=== PATIENT | female | born 1995 | race Caucasian/White ===

== ENCOUNTER 2016-07-13 20:50 | Emergency (ER) ==
[2016-07-13 20:51] VITALS: BMI 20.5
[2016-07-13 20:56] VITALS: BP 109/78; TEMP 101.5
--- NOTE | 2016-07-13 21:23 | ED.PDOC ---
General ED Provider: Dr. DENAE WOODSON Chief Complaint: Fever Stated Complaint: Been coughing, congestion, hurting to breath, Time Seen by Physician: 21:21 Mode of Arrival: Walk-In Information Source: Patient, Family Primary Care Provider: IRIS ANTONIO Nursing and Triage Documentation Reviewed and Agree: Yes Respiratory Complaint Exam - Respiratory Complaint/Exam Symptoms Are: Still present Timing: Constant Initial Severity: Mild Current Severity: Mild Location: Nose, Chest Character: Reports: Non-productive cough Aggravating: Reports: Allergens, URI Alleviating: Reports: None Associated Signs and Symptoms: Reports: Wheezing, Nasal congestion, Hoarseness. Denies: Rapid breathing, Dyspnea, Fever, Chills, Chest pain, Pleuritic chest pain, Hemoptysis, Dizziness, Calf pain, Calf swelling, Edema, URI, Sinus discomfort, Vomiting, Sore throat, Weight loss, Decreased oral intake, Increased thirst, Increased appetite, Increased urination History of Healthcare-Acquired Pneumonia: No Related Surgical History: Reports: None Pulmonary Embolism Risk Factors: None Cardiac Risk Factors: Reports: None Pseudomonas Risk Factors: Reports: None Tuberculosis Risk Factors: Reports: None Status Asthmaticus Risk Factors: Reports: None Home Oxygen Use: No Recent Stress Test: No Recent Echo/LV Function: No Current Antibiotic Use: No Current Asthma Medication Use: No Respiratory Distress: None Inadequate Respiratory Effort: No Dysphagia Present: No Stridor Present: No JVD Present: No Accessory Muscle Use: No Retractions: Not Present Diminished Breath Sounds: No Sinus Tenderness: None Differential Diagnoses: Pneumonia, Influenza Review of Systems - Review Of Systems Constitutional: Reports: Fever, Malaise Eyes: Reports: No symptoms Ears, Nose, Mouth, Throat: Reports: No symptoms Respiratory: Reports: Cough Cardiac: Reports: No symptoms GI: Reports: No symptoms : Reports: No symptoms Musculoskeletal: Reports: No symptoms Skin: Reports: No symptoms Neurological: Reports: No symptoms Endocrine: Reports: No symptoms Hematologic/Lymphatic: Reports: No symptoms All Other Systems: Reviewed and Negative Past Medical History - Past Medical History Previously Healthy: Yes Endocrine: Reports: None Cardiovascular: Reports: None Respiratory: Reports: None Hematological: Reports: None Gastrointestinal: Reports: None Genitourinary: Reports: None Neuro/Psych: Reports: None Musculoskeletal: Reports: None Cancer: Reports: None Last Menstrual Period: april - Surgical History General Surgical History: Reports: None - Family History Family History: Reports: None - Social History Smoking Status: Never smoker Hx Substance Use: No Alcohol Screening: Occasionally - Immunizations Tetanus Shot up to Date: Yes Physical Exam - Physical Exam Appearance: Well-appearing, No pain distress, Well-nourished Eyes: PIA, EOMI, Conjunctiva clear ENT: Ears normal, Nose normal, Oropharynx normal Respiratory: Airway patent, Breath sounds clear, Breath sounds equal, Respirations nonlabored Cardiovascular: RRR, Pulses normal, No rub, No murmur GI/: Soft, Nontender, No masses, Bowel sounds normal, No Organomegaly Musculoskeletal: Normal strength, ROM intact, No edema, No calf tenderness Skin: Warm, Dry, Normal color Neurological: Sensation intact, Motor intact, Reflexes intact, Cranial nerves intact, Alert, Oriented Psychiatric: Affect appropriate, Mood appropriate Interpretation - Radiology Interpretation Radiology Interpretation By: ED Physician Radiology Results: Negative Exam Interpreted: CXR Critical Care Note - Critical Care Note Total Time (mins): 0 Course - Course Orders, Labs, Meds: Lab Review 07/13/16 21:21 Urine Color Yellow Urine Clarity Clear Urine pH 5.5 Ur Specific [place] 1.025 Urine Protein Negative Urine Glucose (UA) Negative Urine Ketones 1+ Urine Blood Negative Urine Nitrite Negative Urine Bilirubin Negative Urine Urobilinogen 0.2 Ur Leukocyte Esterase 1+ Urine Microscopic WBC 2-5 Ur Squamous Epith Cells 10-20 Urine Bacteria 1+ Urine Mucus Trace Urine Test Negative Influenza A (Rapid) Negative Influenza B (Rapid) Negative Orders Category Date Time Status MOLECULAR GROUP A STREP Stat LAB 07/13/16 21:21 Results RAPID FLU A/B Stat LAB 07/13/16 21:21 Completed STREP SCREEN Stat LAB 07/13/16 21:21 Results URINALYSIS C & S IF INDICATED Stat LAB 07/13/16 21:21 Completed URINE CULTURE Stat LAB 07/13/16 21:33 Received URINE Stat LAB 07/13/16 21:21 Completed Dexamethasone 4 mg/ml Inj [Decadron 4 mg/ml Sdv] MEDS 07/13/16 21:43 Stat 4 mg IM ONCE STA CXR [CHEST, 1V AP ONLY] Stat RADS 07/13/16 21:20 Taken Medications Discontinued Medications Generic Name Dose Route Start Last Admin Trade Name Freq PRN Reason Stop Dose Admin Dexamethasone Sodium Phosphate 4 mg 07/13/16 21:43 Decadron 4 Mg/Ml Sdv IM 07/13/16 21:44 ONCE STA Vital Signs: Temp Pulse Resp BP Pulse Ox 07/13/16 20:52 101.5 F H 116 H 16 109/78 96 Departure - Departure Time of Disposition: 21:48 Disposition: HOME SELF-CARE Discharge Problem: URTI (acute upper respiratory infection) UTI (urinary tract infection) Qualifiers: Urinary tract infection type: acute cystitis Hematuria presence: without hematuria Qualifier Code: (N30.00) Acute cystitis without hematuria Instructions: Upper Respiratory Infection (ED) Condition: Stable Pt referred to PMD for follow-up: No Additional Instructions: INCREASE HYDRATION TYLENOL PRN Prescriptions: Amoxicillin/Potassium Clav [Augmentin 500-125 mg Tab] 1 tab PO Q12HR #20 tablet Dextromethorphan Hb/Doxylamine [Robitussin Nighttime Cough Dm] 118 ml PO TID #1 bottle Prednisone 10 mg PO BIDWM #14 tablet Allergies/Adverse Reactions: Allergies No Known Allergies Allergy (Verified 07/13/16 20:56) Home Medications: Ambulatory Orders Amoxicillin/Potassium Clav [Augmentin 500-125 mg Tab] 1 tab PO Q12HR #20 tablet 07/13/16 Dextromethorphan Hb/Doxylamine [Robitussin Nighttime Cough Dm] 118 ml PO TID #1 bottle 07/13/16 Prednisone 10 mg PO BIDWM #14 tablet 07/13/16 Disposition Discussed With: Patient, Family
[2016-07-13 21:30] LABS: BILIRUBIN,URINE Negative (NEGATIVE); KETONES,URINE 1+ (NEGATIVE); LEUKOCYTE ESTERASE ,URINE 1+ (NEGATIVE); NITRITE,URINE Negative (NEGATIVE); PH,URINE 5.5 (5-9); PROTEIN,URINE Negative (NEGATIVE); URINE, BLOOD Negative (NEGATIVE)
[2016-07-13 21:32] LABS: ADD URINE MICROSCOPIC YES
[2016-07-13 21:33] LABS: BACTERIA,URINE 1+ (NOT PRESENT); URINE PREGNANCY INTERNAL QC INTERNAL QC VALID
[2016-07-13 21:42] LABS: FLU INTERNAL QC INTERNAL QC VALID; RAPID FLU A NEGATIVE (NEGATIVE); RAPID FLU B NEGATIVE (NEGATIVE)
[2016-07-13] MEDS ORDERED: DECADRON 4 MG/ML SDV IM STA (21:43)
[2016-07-13] MEDS ORDERED: AUGMENTIN 500-125 MG TAB PO STA (21:46)
[2016-07-13] MEDS ORDERED: TYLENOL PO STA (21:46)
--- NOTE | 2016-07-14 07:54 | DI ---
EXAM: CHEST FRONTAL VIEW HISTORY: Cough. COMPARISON: 02/23/2013 FINDINGS: Normal heart size. Lungs are clear. Stabilization hardware scoliosis appears stable. IMPRESSION: No acute cardiopulmonary process.
== END 2016-07-13 22:02 | disposition home or self-care (01) ==
LOC: ED 20:50
DX: J06.9 Acute upper respiratory infection, unspecified (principal); N30.00 Acute cystitis without hematuria
CPT/HCPCS: 81001; 81025; 87086; 87651; 87804; 87880; 96372; 99283

== ENCOUNTER 2016-10-20 19:19 | Emergency (ER) ==
[2016-10-20 19:19] VITALS: BMI 20.5
[2016-10-20 19:21] VITALS: BP 125/82; TEMP 98
--- NOTE | 2016-10-20 19:42 | ED.PDOC ---
General ED Provider: Dr. MARISA HUSTON-ER Chief Complaint: Urinary Problem Stated Complaint: it irizarry when i pee Time Seen by Physician: 19:41 Mode of Arrival: Walk-In Information Source: Patient Exam Limitations: No limitations Primary Care Provider: IRIS ANTONIO Nursing and Triage Documentation Reviewed and Agree: Yes Complaint Exam - UTI Female Complaint/Exam Patient Complains of: Reports: Painful urination, Blood in urine Onset/Duration: one week Symptoms Are: Still present Timing: Constant Initial Severity: Mild Current Severity: Moderate Location of Pain: Reports: Suprapubic Associated Signs and Symptoms: Denies: Fever, Chills, Flank pain, Dyspareunia, Vaginal discharge Patient Rh Status: Unknown CVA Tenderness: No Suprapubic Tenderness: No Differential Diagnoses: Cystitis Review of Systems - Review Of Systems Constitutional: Reports: No symptoms Eyes: Reports: No symptoms Ears, Nose, Mouth, Throat: Reports: No symptoms Respiratory: Reports: No symptoms Cardiac: Reports: No symptoms GI: Reports: No symptoms : Reports: Burning, Dysuria, Flank pain, Hematuria, Urgency Musculoskeletal: Reports: No symptoms Skin: Reports: No symptoms Neurological: Reports: No symptoms Endocrine: Reports: No symptoms Hematologic/Lymphatic: Reports: No symptoms All Other Systems: Reviewed and Negative Past Medical History - Past Medical History Previously Healthy: Yes Endocrine: Reports: None Cardiovascular: Reports: None Respiratory: Reports: None Hematological: Reports: None Gastrointestinal: Reports: None Genitourinary: Reports: None Neuro/Psych: Reports: None Musculoskeletal: Reports: None Cancer: Reports: None Last Menstrual Period: few months (irregular) - Surgical History General Surgical History: Reports: None - Family History Family History: Reports: None - Social History Smoking Status: Never smoker Hx Substance Use: No Alcohol Screening: Occasionally Physical Exam - Physical Exam Appearance: Well-appearing, No pain distress, Well-nourished Eyes: PIA, EOMI, Conjunctiva clear ENT: Ears normal, Nose normal, Oropharynx normal Neck: Supple Respiratory: Airway patent, Breath sounds clear, Breath sounds equal, Respirations nonlabored Cardiovascular: RRR, Pulses normal, No rub, No murmur GI/: Soft, Nontender, No masses, Bowel sounds normal, No Organomegaly Musculoskeletal: Normal strength, ROM intact, No edema, No calf tenderness Skin: Warm, Dry, Normal color Neurological: Sensation intact, Motor intact, Reflexes intact, Cranial nerves intact, Alert, Oriented Psychiatric: Affect appropriate, Mood appropriate Critical Care Note - Critical Care Note Total Time (mins): 0 Course - Course Orders, Labs, Meds: Lab Review 10/20/16 19:30 Urine Color Yellow Urine Clarity Cloudy Urine pH 7.5 Ur Specific [place] 1.025 Urine Protein 3+ Urine Glucose (UA) Negative Urine Ketones Trace Urine Blood 3+ Urine Nitrite Negative Urine Bilirubin 1+ Urine Urobilinogen 1.0 Ur Leukocyte Esterase 1+ Urine Microscopic RBC 50-100 Urine Microscopic WBC 5-10 Ur Squamous Epith Cells 0-2 Urine Test Negative Orders Category Date Time Status URINALYSIS C & S IF INDICATED Stat LAB 10/20/16 19:30 Completed URINE CULTURE Stat LAB 10/20/16 19:30 Received URINE Stat LAB 10/20/16 19:30 Completed Vital Signs: Temp Pulse Resp BP Pulse Ox 10/20/16 19:19 98.0 F 68 18 125/82 99 Departure - Departure Time of Disposition: 19:59 Disposition: HOME SELF-CARE Discharge Problem: Urinary tract infectious disease Instructions: Urinary Tract Infection in Women (ED), Dysuria (ED) Condition: Good Pt referred to PMD for follow-up: Yes Additional Instructions: cipro 500mg bid x 7days--pyridium 200mg tid with food #6--fluids--recheck in 72hrs if not better Allergies/Adverse Reactions: Allergies No Known Allergies Allergy (Verified 10/20/16 19:21) Home Medications: Ambulatory Orders 1 [No Reported Medications] 10/20/16 Disposition Discussed With: Patient, Family
[2016-10-20 19:46] LABS: BILIRUBIN,URINE 1+ (NEGATIVE); KETONES,URINE Trace (NEGATIVE); LEUKOCYTE ESTERASE ,URINE 1+ (NEGATIVE); NITRITE,URINE Negative (NEGATIVE); PH,URINE 7.5 (5-9); PROTEIN,URINE 3+ (NEGATIVE); URINE, BLOOD 3+ (NEGATIVE)
[2016-10-20 19:47] LABS: URINE PREGNANCY INTERNAL QC INTERNAL QC VALID
[2016-10-20 19:55] LABS: ADD URINE MICROSCOPIC YES
== END 2016-10-20 20:03 | disposition home or self-care (01) ==
LOC: ED 19:19
DX: N39.0 Urinary tract infection, site not specified (principal); R31.9 Hematuria, unspecified
CPT/HCPCS: 81001; 81025; 87086; 87186; 99283